=== PATIENT | male | born 1960 | race Two or more races ===

== ENCOUNTER 2019-08-27 23:17 | Emergency (ER) | payer MEDICAID, OTHER ==
[~2019-08-27] VITALS: Ht 157.5 cm; Wt 81.8 kg
[2019-08-28 00:55] LABS: BASOPHILS % (AUTO) 0.6 % (0.0-2.0); EOSINOPHILS % (AUTO) 1.3 % (1.0-6.0); HEMATOCRIT 43.1 % (41-53); HEMOGLOBIN 14.9 g/dL (13.5-17.5); LYMPHOCYTES # (AUTO) 1.5 K/uL (1.0-4.8); MEAN CORPUSCULAR HEMOGLOBIN 29.8 pg (26.0-34.0); MEAN CORPUSCULAR HGB CONC 34.6 G/dL (31.0-37.0); MEAN CORPUSCULAR VOLUME 86 fL (80-100); MONOCYTES # (AUTO) 1.2 K/uL (0.1-1.0); MONOCYTES % (AUTO) 9.9 % (2.0-9.0); NEUTROPHILS # (AUTO) 8.9 K/uL (1.8-7.7); NEUTROPHILS % (AUTO) 75.2 % (40.0-70.0); PLATELET COUNT (AUTO) 274 K/uL (150-450); RED BLOOD CELL COUNT(AUTO) 4.99 MIL/uL (4.50-5.90); RED CELL DISTRIBUTION WIDTH 13.4 % (11.5-14.5)
[2019-08-28 01:04] LABS: ANION GAP 6 mmol/L (8-16); CALCIUM, TOTAL 8.7 mg/dL (8.8-10.5); CARBON DIOXIDE 30 mmol/L (22-29); CHLORIDE 101 mmol/L (98-107); CREATININE 0.85 mg/dL (0.60-1.30); GLOMERULAR FILTR. RATE CALC > 60 mL/min (>60); GLUCOSE,RANDOM 123 mg/dL (70-110); POTASSIUM 3.6 mmol/L (3.5-5.1); SODIUM SERUM 137 mmol/L (136-145); UREA NITROGEN, BLOOD 11 mg/dL (7-18)
[2019-08-28 01:09] LABS: LACTIC ACID 1.3 mmol/L (0.4-2.0)
[2019-08-28 01:10] LABS: B-TYPE NATRIURETIC PEPTIDE < 5 pg/mL (0-100)
[2019-08-28 01:15] LABS: ALANINE AMINOTRANSFERASE 23 U/L (12-78); ALBUMIN 3.3 g/dL (3.4-5.0); ALKALINE PHOSPHATASE 75 U/L (46-116); ASPARTATE AMINOTRANSFERASE 14 U/L (15-37); BILIRUBIN,TOTAL 0.4 mg/dL (0.1-1.0); LIPASE 63 U/L (73-393); TOTAL PROTEIN, SERUM 7.3 g/dL (6.4-8.2)
[2019-08-28] MEDS ORDERED: KETOROLAC TROMETHAMINE 30 MG/ML VIAL IVP ONE (01:30)
[2019-08-28] MEDS ORDERED: SODIUM CHLORIDE 0.9% 1,000 ML IV ONE (01:30)
[2019-08-28] MEDS ORDERED: ACETAMINOPHEN 500 MG TABLET PO ONE (01:30)
[2019-08-28 03:01] LABS: APPEARANCE,URINE CLEAR (CLEAR); BILIRUBIN,URINE NEGATIVE (NEGATIVE); GLUCOSE, URINE (UA) NEGATIVE (NEGATIVE); KETONES,URINE NEGATIVE (NEGATIVE); LEUKOCYTE ESTERASE ,URINE NEGATIVE (NEGATIVE); NITRATE,URINE NEGATIVE (NEGATIVE); OCCULT BLOOD,URINE NEGATIVE (NEGATIVE); PH,URINE 5.5 (5.0-8.0); PROTEIN,URINE NEGATIVE (NEGATIVE); UROBILINOGEN,URINE 0.2 mg/dL (<=1.0)
[2019-08-28 03:07] LABS: AMPHET/METH SCREEN,URINE NEGATIVE (NEGATIVE); BACTERIA,URINE None Seen /HPF (None Seen); BARBITURATE SCREEN, URINE NEGATIVE (NEGATIVE); BENZODIAZEPINES SCREEN,URINE NEGATIVE (NEGATIVE); CALCIUM OXALATE CRYSTALS,UR Moderate /LPF (None Seen); CANNABINOID SCREEN,URINE NEGATIVE (NEGATIVE); COCAINE SCREEN,URINE NEGATIVE (NEGATIVE); METHADONE SCREEN, URINE NEGATIVE (NEGATIVE); MUCUS,URINE Few LPF (None Seen); OPIATE SCREEN,URINE NEGATIVE (NEGATIVE); RBC,URINE None Seen /HPF (0-2); SQUAMOUS EPITHELIAL CELL,UR Rare /LPF (None Seen)
[2019-08-28 03:09] LABS: PHENCYCLIDINE SCREEN,URINE NEGATIVE (NEGATIVE)
[2019-08-28 03:32] VITALS: BP 139/81
== END 2019-08-28 03:54 | disposition home or self-care (01) ==
LOC: EMS 23:17
DX: K56.600 Partial intestinal obstruction, unspecified as to cause (principal); K52.9 Noninfective gastroenteritis and colitis, unspecified; E86.0 Dehydration; I10 Essential (primary) hypertension
CPT/HCPCS: 36415; 71045; 74176; 80053; 80307; 81001; 83605; 83690; 83735; 83880; 84484; 85025; 87040; 93005; 96361; 96374; 99285; G0480; J1885; J7030

== ENCOUNTER 2020-09-04 23:25 | Emergency (ER) | payer OTHER ==
[~2020-09-04] VITALS: Ht 167.6 cm; Wt 102.3 kg
[2020-09-05 00:46] VITALS: BP 141/94
== END 2020-09-05 01:15 | disposition home or self-care (01) ==
LOC: EMS 23:26
DX: R05 Cough (principal); R13.10 Dysphagia, unspecified; R53.1 Weakness
CPT/HCPCS: 70450; 99284; 71046; 71046-TC

== ENCOUNTER 2020-10-03 00:57 | Emergency (ER) | payer OTHER ==
[~2020-10-03] VITALS: Ht 167.6 cm; Wt 111.4 kg
[2020-10-03] MEDS ORDERED: PRAV40TA4 PO (01:16)
[2020-10-03] MEDS ORDERED: OMEP20 PO (01:16)
[2020-10-03] MEDS ORDERED: LISI-893 PO (01:16)
[2020-10-03 01:55] LABS: COVID AG,FIA SOURCE NASOPHARYNGEAL
[2020-10-03 02:00] VITALS: BP 149/81
[2020-10-03] MEDS ORDERED: BENZONATATE 100 MG CAPSULE PO ONE (02:15)
== END 2020-10-03 02:15 | disposition home or self-care (01) ==
LOC: EMS 00:57
DX: R05 Cough (principal); I10 Essential (primary) hypertension; E78.00 Pure hypercholesterolemia, unspecified; Z79.899 Other long term (current) drug therapy; Z20.822 Contact with and (suspected) exposure to COVID-19
CPT/HCPCS: 71045; 87426; 99284; U0003

== ENCOUNTER 2021-01-02 17:37 | Emergency (ER) | payer OTHER ==
[~2021-01-02] VITALS: Ht 167.6 cm; Wt 95.5 kg
[~2021-01-02 17:37] MED LIST: LISI-893 PO; OMEP20 PO; PRAV40TA4 PO
[2021-01-02] MEDS ORDERED: AMLO-257 PO (17:51)
[2021-01-02] MEDS ORDERED: NAPR-1025 PO (17:51)
[2021-01-02 19:18] VITALS: BP 136/70
== END 2021-01-02 19:19 | disposition home or self-care (01) ==
LOC: EMS 17:37
DX: K21.9 Gastro-esophageal reflux disease without esophagitis (principal); I10 Essential (primary) hypertension; R05 Cough; E78.00 Pure hypercholesterolemia, unspecified; Z79.899 Other long term (current) drug therapy; Z91.040 Latex allergy status
CPT/HCPCS: 99283

== ENCOUNTER 2021-06-09 18:11 | Emergency (ER) | payer OTHER ==
[~2021-06-09] VITALS: Ht 160 cm; Wt 54.5 kg
[~2021-06-09 18:11] MED LIST changes: +AMLO-257 PO; +NAPR-1025 PO; -OMEP20 PO
[2021-06-09 18:30] VITALS: BP 148/90
== END 2021-06-09 21:28 | disposition left against medical advice (07) ==
LOC: EMS 18:14
DX: R19.7 Diarrhea, unspecified (principal); Z53.21 Procedure and treatment not carried out due to patient leaving prior to being seen by health care provider

== ENCOUNTER 2022-05-24 10:55 | Emergency (ER) | payer OTHER ==
[~2022-05-24] VITALS: Ht 167.6 cm; Wt 65.9 kg
[2022-05-24 11:19] VITALS: BP 156/84
[2022-05-24] MEDS ORDERED: AMLO10TA55 PO (12:30)
[2022-05-24] MEDS ORDERED: AMLO5TAB66 PO (12:30)
[2022-05-24] MEDS ORDERED: ATOR40TA71 PO (12:30)
[2022-05-24] MEDS ORDERED: LOSA-382 PO (12:30)
[2022-05-24] MEDS ORDERED: TETANUS/DIPHTHERIA TOXOID [TDVAX] [ADULT] 0.5 ML VIAL IM. ONE (12:30)
[2022-05-24] MEDS ORDERED: ASPI-1444 PO (12:30)
[2022-05-24] MEDS ORDERED: PERTUSS(ACELL),DIPH,TET VAC/PF 0.5 ML SYRINGE IM. ONE (12:30)
== END 2022-05-24 13:27 | disposition home or self-care (01) ==
LOC: EMS 11:02
DX: S31.813A Puncture wound without foreign body of right buttock, initial encounter (principal); I10 Essential (primary) hypertension; Z91.040 Latex allergy status; X58.XXXA Exposure to other specified factors, initial encounter; Y93.89 Activity, other specified; Y92.89 Other specified places as the place of occurrence of the external cause; Y99.8 Other external cause status
CPT/HCPCS: 90471; 90714; 99283

== ENCOUNTER 2022-09-02 16:15 | Emergency (ER) | payer OTHER ==
[~2022-09-02] VITALS: Ht 160 cm; Wt 84.1 kg
[~2022-09-02 16:15] MED LIST changes: -AMLO-257 PO; +AMLO10TA55 PO; +ASPI-1444 PO; +ATOR40TA71 PO; +LOSA-382 PO; -PRAV40TA4 PO
[2022-09-02] MEDS ORDERED: LIDOCAINE 1% 10 ML VIAL SQ ONE (17:00)
[2022-09-02 18:52] LABS: BASOPHILS % (AUTO) 0.7 % (0.0-2.0); EOSINOPHILS % (AUTO) 1.6 % (1.0-6.0); HEMATOCRIT 44.8 % (41-53); HEMOGLOBIN 15.2 g/dL (13.5-17.5); LYMPHOCYTES # (AUTO) 0.9 K/uL (1.0-4.8); LYMPHOCYTES % (AUTO) 9.6 % (22.0-44.0); MEAN CORPUSCULAR HEMOGLOBIN 29.5 pg (26.0-34.0); MEAN CORPUSCULAR VOLUME 87 fL (80-100); MONOCYTES # (AUTO) 0.6 K/uL (0.1-1.0); MONOCYTES % (AUTO) 5.7 % (2.0-9.0); NEUTROPHILS # (AUTO) 8.1 K/uL (1.8-7.7); NEUTROPHILS % (AUTO) 82.4 % (40.0-70.0); PLATELET COUNT (AUTO) 271 K/uL (150-450); RED BLOOD CELL COUNT(AUTO) 5.16 MIL/uL (4.50-5.90); RED CELL DISTRIBUTION WIDTH 13.9 % (11.5-14.5)
[2022-09-02 19:01] LABS: ANION GAP 10 mmol/L (8-16); CALCIUM, TOTAL 8.9 mg/dL (8.8-10.5); CARBON DIOXIDE 27 mmol/L (22-29); CHLORIDE 103 mmol/L (98-107); CREATININE 0.88 mg/dL (0.60-1.30); GLOMERULAR FILTR. RATE CALC > 60 mL/min (>60); GLUCOSE,RANDOM 120 mg/dL (70-110); POTASSIUM 4.4 mmol/L (3.5-5.1); SODIUM SERUM 140 mmol/L (136-145); UREA NITROGEN, BLOOD 16 mg/dL (7-18)
[2022-09-02] MEDS ORDERED: FentaNYL CITRATE PF 100 MCG/2 ML VIAL IVP ONE (19:30)
[2022-09-02] MEDS ORDERED: PROPOFOL 1% 20 ML VIAL IVP ONE (20:00)
[2022-09-02 21:57] VITALS: BP 230/114
[2022-09-02] MEDS ORDERED: LABETALOL HCL 5 MG/ML 20 ML VIAL IVP ONE ×2 (22:00)
== END 2022-09-02 22:37 | disposition home or self-care (01) ==
LOC: EMS 16:16
DX: S43.005A Unspecified dislocation of left shoulder joint, initial encounter (principal); I10 Essential (primary) hypertension; Z98.890 Other specified postprocedural states; Z91.040 Latex allergy status; W10.1XXA Fall (on)(from) sidewalk curb, initial encounter; Y93.89 Activity, other specified; Y92.89 Other specified places as the place of occurrence of the external cause; Y99.8 Other external cause status
CPT/HCPCS: 99285; 23650; 80048; 84484; 85025; 36415; 73020; 73030; 99152; 93005; J2704; J3010; J3490 ×2

== ENCOUNTER 2022-10-22 15:40 | Emergency (ER) | payer OTHER ==
[~2022-10-22] VITALS: Ht 160 cm; Wt 95.5 kg
[2022-10-22] MEDS ORDERED: FentaNYL CITRATE PF 100 MCG/2 ML VIAL IVP ONE (16:45)
[2022-10-22] MEDS ORDERED: MIDAZOLAM HCL 5 MG/ML VIAL IVP ONE (16:45)
[2022-10-22] MEDS ORDERED: FLUMAZENIL 0.1 MG/ML 5 ML VIAL IVP ONE (17:22)
[2022-10-22] MEDS ORDERED: NALOXONE HCL 1 MG/ML 2 ML SYRINGE ONE (17:22)
[2022-10-22] MEDS ORDERED: IBUP-1492 PO (18:30)
[2022-10-22 20:21] VITALS: BP 148/91
== END 2022-10-22 20:43 | disposition home or self-care (01) ==
LOC: EMS 15:41
DX: S43.005A Unspecified dislocation of left shoulder joint, initial encounter (principal); I10 Essential (primary) hypertension; Z98.890 Other specified postprocedural states; Z88.8 Allergy status to other drugs, medicaments and biological substances; Z91.040 Latex allergy status; X58.XXXA Exposure to other specified factors, initial encounter; Y93.67 Activity, basketball; Y92.89 Other specified places as the place of occurrence of the external cause; Y99.8 Other external cause status
CPT/HCPCS: 99285; 23650; 73030; 99152; J3010; J3490; J2310; J2250

== ENCOUNTER 2022-10-25 16:32 | Emergency (ER) | payer OTHER ==
[~2022-10-25] VITALS: Ht 160 cm; Wt 95.5 kg
[~2022-10-25 16:32] MED LIST changes: +IBUP-1492 PO
[2022-10-25] MEDS ORDERED: BUPIVACAINE HCL/PF 0.25% 10 ML VIAL IARTIC ONE (18:00)
[2022-10-25] MEDS ORDERED: MIDAZOLAM HCL 2 MG/2 ML VIAL IVP ONE (18:00)
[2022-10-25] MEDS ORDERED: SODIUM CHLORIDE 0.9% 1,000 ML IV ONE (18:00)
[2022-10-25] MEDS ORDERED: LIDOCAINE 1% 10 ML VIAL IARTIC ONE (18:00)
[2022-10-25 18:45] VITALS: BP 175/109
== END 2022-10-25 20:27 | disposition home or self-care (01) ==
LOC: EMS 16:33
DX: S43.005A Unspecified dislocation of left shoulder joint, initial encounter (principal); I10 Essential (primary) hypertension; Z98.890 Other specified postprocedural states; Z88.5 Allergy status to narcotic agent; Z91.040 Latex allergy status; X50.9XXA Other and unspecified overexertion or strenuous movements or postures, initial encounter; Y93.89 Activity, other specified; Y92.89 Other specified places as the place of occurrence of the external cause; Y99.8 Other external cause status
CPT/HCPCS: 99285; 23650; 96360; 73030; 99152; J3490 ×2; J2250; J7030

== ENCOUNTER 2022-11-08 14:55 | Emergency (ER) | payer OTHER ==
[~2022-11-08] VITALS: Ht 157.5 cm; Wt 95.5 kg
[2022-11-08] MEDS ORDERED: IBUP-1492 PO (17:07)
[2022-11-08 17:24] VITALS: BP 144/85
== END 2022-11-08 17:48 | disposition home or self-care (01) ==
LOC: EMS 14:58
DX: M25.571 Pain in right ankle and joints of right foot (principal); I10 Essential (primary) hypertension; Z88.6 Allergy status to analgesic agent; Z91.040 Latex allergy status; Z79.899 Other long term (current) drug therapy; Z79.82 Long term (current) use of aspirin
CPT/HCPCS: 99283

== ENCOUNTER 2022-12-02 08:02 | Emergency (ER) | payer OTHER ==
[~2022-12-02] VITALS: Ht 160 cm; Wt 95.5 kg
[2022-12-02 08:07] VITALS: TEMP 98.6
[2022-12-02 08:14] VITALS: BP 154/118; PULSE 81; RESP 18
== END 2022-12-02 08:30 | disposition home or self-care (01) ==
LOC: EMS 08:02
DX: S80.01XA Contusion of right knee, initial encounter (principal); S00.83XA Contusion of other part of head, initial encounter; I10 Essential (primary) hypertension; Z98.890 Other specified postprocedural states; Z88.5 Allergy status to narcotic agent; Z91.040 Latex allergy status; Z88.8 Allergy status to other drugs, medicaments and biological substances; W01.0XXA Fall on same level from slipping, tripping and stumbling without subsequent striking against object, initial encounter; Y93.01 Activity, walking, marching and hiking; Y92.89 Other specified places as the place of occurrence of the external cause; Y99.8 Other external cause status
CPT/HCPCS: 99282; Z7502

== ENCOUNTER 2022-12-04 07:36 | Emergency (ER) | payer OTHER ==
[~2022-12-04] VITALS: Ht 157.5 cm; Wt 88.6 kg
[~2022-12-04 07:36] MED LIST changes: -IBUP-1492 PO; -LOSA-382 PO
[2022-12-04] MEDS: FentaNYL CITRATE PF 100 MCG/2 ML VIAL IVP ONE ×2 (08:21→09:49)
[2022-12-04] MEDS: MIDAZOLAM HCL 5 MG/ML VIAL IVP ONE ×2 (08:22→09:49)
[2022-12-04] MEDS ORDERED: NALOXONE HCL 1 MG/ML 2 ML SYRINGE ONE (08:26)
[2022-12-04] MEDS ORDERED: FLUMAZENIL 0.1 MG/ML 5 ML VIAL IVP ONE (08:26)
[2022-12-04] MEDS ORDERED: IBUP-1492 PO (11:39)
[2022-12-04 12:47] VITALS: TEMP 97.9; O2SAT 96
[2022-12-04 13:50] VITALS: BP 148/95; PULSE 72; RESP 15
== END 2022-12-04 13:51 | disposition home or self-care (01) ==
LOC: EMS 07:36
DX: S43.005A Unspecified dislocation of left shoulder joint, initial encounter (principal); M19.90 Unspecified osteoarthritis, unspecified site; E78.00 Pure hypercholesterolemia, unspecified; I10 Essential (primary) hypertension; Z98.890 Other specified postprocedural states; Z88.6 Allergy status to analgesic agent; Z91.040 Latex allergy status; Z88.8 Allergy status to other drugs, medicaments and biological substances; X58.XXXA Exposure to other specified factors, initial encounter; Y93.89 Activity, other specified; Y92.89 Other specified places as the place of occurrence of the external cause; Y99.8 Other external cause status
CPT/HCPCS: 99285; 23650; 73030; 99152; J3010; J3490; J2310; J2250

== ENCOUNTER 2023-01-08 06:23 | Emergency (ER) | payer OTHER ==
[~2023-01-08] VITALS: Ht 157.5 cm; Wt 95.5 kg
[~2023-01-08 06:23] MED LIST changes: +IBUP-1492 PO; -NAPR-1025 PO
[2023-01-08] MEDS ORDERED: FLUMAZENIL 0.1 MG/ML 5 ML VIAL IVP ONE (07:00)
[2023-01-08] MEDS ORDERED: MIDAZOLAM HCL 5 MG/ML VIAL IVP ONE (07:00)
[2023-01-08] MEDS ORDERED: FentaNYL CITRATE PF 100 MCG/2 ML VIAL IVP ONE (07:00)
[2023-01-08 10:00] VITALS: O2SAT 98
[2023-01-08 10:15] VITALS: BP 155/106; PULSE 68; RESP 18; TEMP 98.3
[2023-01-08] MEDS ORDERED: IBUP-1492 PO (10:30)
== END 2023-01-08 10:52 | disposition home or self-care (01) ==
LOC: EMS 06:24
DX: M24.412 Recurrent dislocation, left shoulder (principal); I10 Essential (primary) hypertension; E78.00 Pure hypercholesterolemia, unspecified; Z88.5 Allergy status to narcotic agent; Z88.6 Allergy status to analgesic agent; Z91.040 Latex allergy status; Z79.899 Other long term (current) drug therapy; W06.XXXA Fall from bed, initial encounter; Y93.89 Activity, other specified; Y92.89 Other specified places as the place of occurrence of the external cause; Y99.8 Other external cause status
CPT/HCPCS: 99285; 23650; 73030; 99152; J3010; J3490; J2250

== ENCOUNTER 2023-01-08 13:43 | Emergency (ER) | payer OTHER ==
[~2023-01-08] VITALS: Ht 157.5 cm; Wt 95.5 kg
[2023-01-08 15:26] VITALS: BP 162/105; PULSE 72; RESP 18; TEMP 98.5
== END 2023-01-08 15:28 | disposition home or self-care (01) ==
LOC: EMS 13:45
DX: M24.412 Recurrent dislocation, left shoulder (principal); M19.90 Unspecified osteoarthritis, unspecified site; E78.00 Pure hypercholesterolemia, unspecified; I10 Essential (primary) hypertension; Z98.890 Other specified postprocedural states; Z88.6 Allergy status to analgesic agent; Z91.040 Latex allergy status; Z88.8 Allergy status to other drugs, medicaments and biological substances
CPT/HCPCS: 23650; 99284; 73030-TC; Z7502

== ENCOUNTER 2023-01-16 07:24 | Emergency (ER) | payer OTHER ==
[~2023-01-16] VITALS: Ht 165.1 cm; Wt 100.0 kg
[2023-01-16] MEDS ORDERED: MIDAZOLAM HCL 5 MG/ML VIAL IVP ONE (08:00)
[2023-01-16] MEDS ORDERED: FentaNYL CITRATE PF 100 MCG/2 ML VIAL IVP ONE (08:00)
[2023-01-16 08:50] VITALS: O2SAT 93
[2023-01-16 12:00] VITALS: BP 152/91; PULSE 70; RESP 18
== END 2023-01-16 12:36 | disposition home or self-care (01) ==
LOC: EMS 07:24
DX: M24.412 Recurrent dislocation, left shoulder (principal); M19.90 Unspecified osteoarthritis, unspecified site; E78.00 Pure hypercholesterolemia, unspecified; I10 Essential (primary) hypertension; Z98.890 Other specified postprocedural states; Z88.6 Allergy status to analgesic agent; Z91.040 Latex allergy status; Z88.8 Allergy status to other drugs, medicaments and biological substances
CPT/HCPCS: 99285; 23650; 73030; 99152; J3010; J2250

== ENCOUNTER 2024-05-24 19:58 | Emergency (ER) | payer MEDICARE, OTHER ==
[~2024-05-24] VITALS: Ht 167.6 cm; Wt 96.8 kg
[2024-05-24 20:16] VITALS: BP 170/111; PULSE 84; RESP 18; TEMP 97.9; O2SAT 98
[2024-05-24 20:29] LABS: COVID AG,FIA SOURCE NASAL SWAB
[2024-05-24 21:08] LABS: INFLUENZA TYPE A NEGATIVE FOR TYPE A (NEGATIVE); INFLUENZA TYPE B NEGATIVE FOR TYPE B (NEGATIVE); SARS-COV2 (COVID) ANTIGEN,FIA Negative (Negative)
== END 2024-05-25 00:13 | disposition left against medical advice (07) ==
LOC: EMS 19:58
DX: R05.9 Cough, unspecified (principal); Z53.21 Procedure and treatment not carried out due to patient leaving prior to being seen by health care provider; Z20.822 Contact with and (suspected) exposure to COVID-19
CPT/HCPCS: 71045; 87804